=== PATIENT | male | born 1960 | race Caucasian/White ===

== ENCOUNTER 2020-09-21 12:08 | Emergency (ER) | payer OTHER, SELFPAY ==
--- NOTE | ~2020-09-21 | XR_ITS ---
EXAMINATION: XR chest 1V portable 09/21/2020 14:19 INDICATION: Hypertension PROCEDURE: AP portable chest COMPARISON: No prior studies for comparison. FINDINGS: The lungs are clear. The cardiomediastinal silhouette is within normal limits. There are no pleural effusions. There is no pneumothorax suspected. IMPRESSION: 1: NO ACUTE CARDIOPULMONARY DISEASE. Reviewed, dictated and finalized at location A.
[2020-09-21 12:09] VITALS: BP 174/102; PULSE 85; RESP 18; TEMP 36.2; O2SAT 98
--- NOTE | 2020-09-21 12:34 | ECG_ITS ---
Measurements Intervals [place] Rate: 64 P: 20 [place]: 129 QRS: -12 QRSD: 137 T: 69 QT: 409 QTc: 425 Interpretive Statements SINUS RHYTHM INCOMPLETE LEFT BUNDLE BRANCH BLOCK LEFT VENTRICULAR HYPERTROPHY WITH ST-T CHANGE INFERIOR INFARCT, AGE INDETERMINATE BASELINE ARTIFACT- II, III, AVR, AVF, V3-V6 ABNORMAL ECG Electronically Signed On 09-21-2020 15:36:48 CDT by Cal Goff D.O.
[2020-09-21 13:27] LABS: Basophils Percent Auto 0.7 % (0.2-1.2); Eosinophils Percent Auto 0.7 % (0-4.4); Hematocrit 41.9 % (42.0-52.0); Hemoglobin 14.5 g/dL (14.0-18.0); Immature Granulocyte Absolute 0.01 K/mm3 (0.00-0.031); Immature Granulocyte Percent A 0.2 % (0-0.5); Lymphocytes Absolute Auto 0.78 K/mm3 (0.9-3.2); Lymphocytes Percent Auto 18.8 % (18.3-44.2); Mean Corpuscular HGB Conc 34.6 g/dl (32-36); Mean Corpuscular Hemoglobin 31.3 pg (26-34); Mean Corpuscular Volume 90.3 fl (80-100); Mean Platelet Volume 11.3 fl (7.4-10.4); Monocytes Absolute Auto 0.3 K/mm3 (0.1-0.6); Monocytes Percent Auto 8.2 % (2.6-8.5); Neutrophils Percent Auto 71.4 % (45.5-73.1); Platelet Count Result 141 k/mm3 (150-375); Red Blood Count 4.64 M/mm3 (4.6-6.20); Red Cell Distribution Width 13.6 % (11.5-14.5); White Blood Count 4.2 K/mm3 (4.5-10.0)
[2020-09-21 13:38] LABS: Anion Gap 8 mmol/L (8-16); Blood Urea Nitrogen 14 mg/dL (9-20); Calcium 9.6 mg/dL (8.4-10.2); Carbon Dioxide 26 mmol/L (22-30); Chloride 107 mmol/L (98-107); Estimated CRCL calculation 111 ml/min; Estimated Glomerular Filt Rate > 60; Glucose 117 mg/dL (65-110); Sodium 141 mmol/L (137-145)
[2020-09-21 14:01] VITALS: BP 158/82; PULSE 62; RESP 12; O2SAT 99
--- NOTE | 2020-09-21 14:04 | ED.GENADULT ---
HPI - General Adult General Chief complaint: Recheck/Abnormal Lab/Rx Stated complaint: high blood pressure Time Seen by Provider: 09/21/20 12:21 Source: patient, family and RN notes reviewed Mode of arrival: ambulatory Limitations: no limitations History of Present Illness HPI narrative: Patient is a 59-year-old male who presents with hypertension patient notes that he has been noticing that his blood pressure has been elevated specifically on a office visit today patient denies history of hypertension is not seen by primary care patient denies any fever chills nausea vomiting or other complaints and on arrival is in no distress. Patient denies any chest pain dyspnea Related Data Allergies Allergy/AdvReac Type Severity Reaction Status Date / Time No Known Allergies Allergy Verified 09/21/20 12:15 Review of Systems Review of Systems: All systems reviewed & are unremarkable except as noted in HPI and below PMFSH Past Medical History Medical History (Updated 09/21/20 @ 15:11 by Rajesh Noguera PA-C) Bladder cancer Social History Social History (Updated 09/21/20 @ 14:06 by Rajesh Noguera PA-C) Smoking status: Former smoker Exam Narrative: GENERAL: Well-appearing, well-nourished, and in no acute distress. HEAD: Normocephalic, atraumatic. EYES: PERRLA and EOMI. ENT: Nares clear, no rhinorrhea or epistaxis. Mucous membranes moist. CHEST: Clear to auscultation. No respiratory distress. No wheezes rales or rhonchi HEART: Regular rate and rhythm. No murmur heard. Normal peripheral pulses. ABDOMEN: Soft, nontender, nondistended, normal active bowel sounds. EXTREMITIES: Normal range of motion. No edema. SKIN: Warm, dry, no rash. NEURO: No focal deficits. Alert and oriented x3. Cranial nerves II through XII grossly intact PSYCH: Normal mood and affect. Course Course Emergency Course: Patient in the room at this time resting comfortably aware of case findings treatment plan diagnosis will be referred to primary care and cardiology for further evaluation of his symptoms he has never had chest pain he is without dyspnea no fever no URI symptoms will be provided with resources for follow-up and strict reasons to return ABCs and vital signs intact and stable Vital Signs Vital signs: Vital Signs Temperature 97.2 F L 09/21/20 12:09 Pulse Rate 85 09/21/20 12:09 Respiratory Rate 18 07/30/21 12:09 Blood Pressure 174/102 H 09/21/20 12:09 Pulse Oximetry 98 09/21/20 12:09 Temperature 97.2 F L 09/21/20 12:09 Pulse Rate 62 09/21/20 14:01 Respiratory Rate 12 09/21/20 14:01 Blood Pressure 158/82 H 09/21/20 14:01 Pulse Oximetry 99 09/21/20 14:01 Medical Decision Making MDM Narrative Medical decision making narrative: Patients EKGs and labs are without significant high risk changes. Cardiac risk factors were reviewed. Patient is felt likely to be low risk for ACS and reasonable for further risk stratification testing as an outpatient. Patient is without pain. A low-risk Wells criteria is noted. PE is felt to be unlikely. No pneumonia or URI symptoms were seen on evaluation today. Patient is felt to be reasonable for continued evaluation as an outpatient. Vital Signs Vital Signs: Vital Signs Temperature 97.2 F L 09/21/20 12:09 Pulse Rate 85 09/21/20 12:09 Respiratory Rate 18 09/21/20 12:09 Blood Pressure 174/102 H 09/21/20 12:09 Pulse Oximetry 98 09/21/20 12:09 Temperature 97.2 F L 09/21/20 12:09 Pulse Rate 62 09/21/20 14:01 Respiratory Rate 12 09/21/20 14:01 Blood Pressure 158/82 H 09/21/20 14:01 Pulse Oximetry 99 09/21/20 14:01 Lab Data Result diagrams: 09/21/20 13:16 09/21/20 13:15 Labs: Lab Results 09/21/20 09/21/20 Range/Units 13:15 13:16 WBC 4.2 L (4.5-10.0) K/mm3 RBC 4.64 (4.6-6.20) M/mm3 Hgb 14.5 (14.0-18.0) g/dL Hct 41.9 L (42.0-52.0) % MCV 90.3 (80-100) fl MCH 31.3 (26-34) pg MCHC
[2020-09-21 14:50] VITALS: BP 149/74; PULSE 60; RESP 20; O2SAT 99
[2020-09-21 15:20] VITALS: BP 146/75; PULSE 60; RESP 20; O2SAT 99
== END 2020-09-21 15:30 | disposition home or self-care (01) ==
PROVIDERS: Emergency Medicine Emergency Medical Services; Emergency Provider Emergency Medicine
DX: R03.0 Elevated blood-pressure reading, without diagnosis of hypertension (principal); Z87.891 Personal history of nicotine dependence; Z85.51 Personal history of malignant neoplasm of bladder; I44.7 Left bundle-branch block, unspecified; I51.7 Cardiomegaly; R94.31 Abnormal electrocardiogram [ECG] [EKG]
CPT/HCPCS: 36415; 71045; 80048; 85025; 93005; 99284